=== PATIENT | female | born 1970 | race Caucasian/White ===

== ENCOUNTER 2017-10-04 09:30 | Emergency (ER) | payer BC ==
[~2017-10-04] VITALS: Ht 167.6 cm; Wt 80.0 kg
[~2017-10-04 09:30] MED LIST: TRAM50 PO; ZOFR4TAB3 SL
[2017-10-04 09:43] VITALS: BP 110/58; PULSE 68; RESP 18; TEMP 99; O2SAT 97
[2017-10-04] MEDS ORDERED: FLUOXETINE (09:47)
[2017-10-04] MEDS: LORazepam 2 MG/ML VIAL IM ONE (10:12)
[2017-10-04] MEDS: MORPHINE SULFATE 8 MG/ML INJ SQ ONE (10:13)
--- NOTE | 2017-10-04 10:13 | PD ---
HPI . Back pain Chief Complaint: Back/ Neck Pain or Injury Time Seen by Provider: 09:57 Travel History International Travel<30 days: No Contact w/Intl Traveler<30days: No Traveled to known affect area: No History of Present Illness HPI Patient presents via [facility] with chief complaint of low back pain. Patient denies injury. She describes diffuse low back pain which she rates 10/10. Pain is exacerbated by movement. Onset of pain was 4 days ago. It has been getting progressively worse since that time and became acutely worse at 3 AM. She has tried chiropractic, physical therapy and massage for her back pain all in the last 4 days without any relief of her symptoms. In fact, she believes that the manipulations have made it worse. She states that she takes Mobic occasionally for chronic hip pain. Last dose of Mobic was 3 AM. She also reports that she took 1 of her husbands [place] a couple of hours ago and that it did help. However, she is still complaining with pain 10/10. [facility] Past Medical History Narrative Medical Denies any history of IV drug abuse ?: Not LMP: 09/29/17 : 3 Para: 4 Past Surgical History Section: Yes Social History Alcohol Use: Yes (occasional ) Tobacco Use: No Substance Use: No Allergies-Medications (Allergen,Severity, Reaction): Coded Allergies: No Known Allergies (Unverified , 12/15/15) Reported Meds & Prescriptions Reported Meds & Active Scripts Active Reported [flouxetin] Review of Systems Except as stated in HPI: all other systems reviewed are Neg General / Constitutional: No: Fever, Chills Genitourinary: No: Incontinence Neurologic: No: Paresthesia, Incontinence Physical Exam Narrative GENERAL: Patient is lying on the stretcher with her eyes closed most of the time. SKIN: warm/dry. HEAD: Normocephalic. Atraumatic. EYES: Pupils equal and round. No scleral icterus. No injection or drainage. NECK: Full range of motion without pain.. CARDIOVASCULAR: Regular rate and rhythm. RESPIRATORY: No accessory muscle use. MUSCULOSKELETAL: Low back is diffusely tender to palpation. No point tenderness. Straight leg raise bilaterally causes low back pain and spasm. NEUROLOGICAL: Awake and alert. No obvious cranial nerve deficits. Motor grossly within normal limits. Normal speech. PSYCHIATRIC: Appropriate mood and affect; insight and judgment normal. Data Data Last Documented VS Vital Signs Date Time Temp Pulse Resp B/P (MAP) Pulse Ox O2 Delivery O2 Flow Rate FiO2 10/04/17 09:43 99.0 68 18 110/58 (75) 97 Orders Orders Lorazepam Inj (Ativan Inj) (10/04/17 10:15) Morphine Inj (Morphine Inj) (10/04/17 10:15) Spine, Lumbar Comp W/Obliq (10/04/17 10:07) MDM Medical Decision Making Medical Screen Exam Complete: Yes Emergency Medical Condition: Yes Differential Diagnosis Differential diagnosis includes but is not limited to muscular low back pain, DDD, spinal stenosis, epidural abscess, sciatica, kidney infection or stone. Narrative Course This patient presents with atraumatic low back pain. She has no signs or symptoms concerning for epidural abscess or cauda equina. She has diffuse tenderness to palpation in her back. No point tenderness. I will treat her here with IM Ativan and subcu morphine. I will check some plain films of her back to look at her alignment. E force was queried. She has had no controlled substances filled in [place]. Last Impressions Lumbar Spine X-Ray 10/04/17 1007 Signed Impressions: Service Date/Time: Wednesday, October 04, 2017 10:33 - CONCLUSION: Degenerative changes seen at the level of L5-S1. Otherwise negative exam.. Alona Valentin MD The x-rays were independently reviewed by me. This patient will be discharged with prescriptions for [place] and Flexeril. Diagnosis Primary Impression: Low back pain Qualified Codes: M54.5 - Low back pain Patient Instructions: Acute Low Back Pain (DC), General Instructions Med/Other Pt SpecificInfo: Prescription(s) given Scripts Cyclobenzaprine (Flexeril) 10 Mg Tab 10 MG PO TID for Muscle Spasm, #30 TAB 0 Refills Prov: Tayler Hoff MD 10/04/17 Hydrocodone-Acetaminophen ([place]) 5 Mg-325 Mg Tab 1 TAB PO Q4H Y for PAIN, #12 TAB 0 Refills Prov: Tayler Hoff MD 10/04/17 Disposition: 01 DISCHARGE HOME Condition: Stable Tayler Hoff MD October 04, 2017 10:13
--- NOTE | 2017-10-04 11:08 | RADRPT ---
EXAM DATE/TIME: 10/04/2017 10:33 [facility] COMPARISON: No previous studies available for comparison. INDICATIONS : Lower back pain, no trauma. MEDICAL HISTORY : None. SURGICAL HISTORY : section. Tubal ligation. ENCOUNTER: Initial ACUITY: 3 days PAIN SCORE: 10/10 LOCATION: Bilateral lower back that radiates down the anterior and posterior portions of her legs. FINDINGS: There are five non-rib bearing vertebral bodies. The vertebral bodies are in normal alignment withou t evidence of subluxation or scoliosis. There is a moderate to space narrowing present at L5/S1 with mild anterior degenerative changes. The remainder of the disc spaces are well preserved. The posterio r elements are intact without evidence of spondylolysis. The pedicles are intact. Bony mineralizati on is normal. No fracture is identified. CONCLUSION: Degenerative changes seen at the level of L5-S1. Otherwise negative exam.. Alona Valentin MD on October 04, 2017 at 11:05 Board Certified Radiologist. This report was verified electronically.
[2017-10-04] MEDS ORDERED: NORC5TAB PO (11:41)
[2017-10-04] MEDS ORDERED: CYCL10TA PO (11:41)
== END 2017-10-04 11:50 | disposition home or self-care (01) ==
LOC: NEPD 09:30
DX: M54.5 Low back pain (principal)
CPT/HCPCS: 72110; 96372; 99283; J2060; J2270